=== PATIENT | male | born 1935 | race Caucasian/White ===

== ENCOUNTER 2017-02-26 15:04 | Inpatient (IN) | payer MEDICARE, BC ==
[~2017-02-26] VITALS: Ht 180.3 cm; Wt 83.2 kg
[~2017-02-26 15:04] MED LIST: ACETAMINOPHEN500 MG PO; ASPI325T6 PO; ASPIRIN EXTRA500 M1 PO; CELEBREX 200MG200 MG PO; CENTRUM SILVER1 TA1 PO; CEPHALEXIN500 M1 PO; COUMADIN 1MG1 MG/TAB PO; COUMADIN 5MG5 MG/TAB PO; COUMADIN 6MG6 MG/TAB PO; COUMADIN3 MG PO; FLECAINIDE ACE100 MG PO; FLECAINIDE PO; GLUCOPHAGE500 MG/TAB PO; HCTZ 25MG25 MG PO; HYDROCODONE/APAP PO; LANTUS100 U/ML; LANTUS100 U/ML SQ; LISINOPRIL10 MG PO; LISINOPRIL2.5 MG PO; LISINOPRIL20 MG PO; LOPRESSOR 225 MG/TAB PO; LORTAB 7.5/5001 TAB PO; LOVASTATIN40 MG PO; MELOXICAM PO; METOPROLOL SUCC25 MG PO; METOPROLOL25 MG PO; MOBIC15 MG PO; MULTIPLE VITAMI1 TAB PO; MVI PO; NAPROSYN500 MG PO; NORCO 325 MG-7.1 TAB PO; NORVASC 10MG10 MG PO; NOVOLOG 100U100 U/ML SQ; NOVOLOG FLEX100 U/ML SQ; PACERONE400 MG PO; SENOKOT S 50 MG1 TAB PO; TAMBOCOR 1100 MG/TAB PO; TIKOSYN0.5 MG PO; TOPROL XL 25MG25 MG PO; TRICOR145 MG PO; VITAMIN C BUFF500 MG PO; VITAMIN C500 MG PO; VITAMIN D31000 IU PO; WARFARIN SODIUM1 MG PO; ZESTRIL 10MG10 MG PO; ZOCOR 40MG40 MG PO; ZOCOR40 MG PO
[2017-03-04] VITALS (10 sets, daily range): BP systolic 95–133; BP diastolic 56–70; PULSE 69–80; TEMP 97.8–98.6
[2017-03-04] MEDS ORDERED: PACERONE200 MG PO (09:33)
[2017-03-04] MEDS ORDERED: VITAMIN K0.1 MG PO (09:35)
[2017-03-04] MEDS ORDERED: LOVENOX 3030 MG/0.3 SQ (09:36)
[2017-03-04] MEDS ORDERED: SYNTHROID0.1 MG/TAB PO (09:37)
[2017-03-04] MEDS ORDERED: OSCAL 500 TAB500 MG PO (09:37)
[2017-03-04] MEDS ORDERED: K-DUR 10 MEQ T10 MEQ PO (09:39)
[2017-03-04] MEDS ORDERED: POLYSPORIN OINT30 GM TP (09:40)
[2017-03-04 10:03] LABS: HEMATOCRIT 34.4 % (42.0-52.0); HEMOGLOBIN 11.9 g/dl (13.5-18.0)
[2017-03-04 10:05] LABS: INR 1.2 (0.8-3.0); PROTHROMBIN TIME 13.8 SECONDS (9.7-12.8)
[2017-03-04 21:15] LABS: PH 5 (5-8); SQUAMOUS EPITHELIAL 0-2 /hpf; URINE APPEARANCE Clear; URINE BACTERIA None Seen /hpf; URINE BILIRUBIN Negative (NEGATIVE); URINE BLOOD 1+ (NEGATIVE); URINE COLOR Amber; URINE GLUCOSE Negative (NEGATIVE); URINE KETONE Trace (NEGATIVE); URINE UROBILINOGEN Negative (NEGATIVE); URINE WBC 0-2 /hpf
[2017-03-05 00:09] VITALS: BP 91/48; PULSE 77; TEMP 98.1
[2017-03-05 03:32] VITALS: BP 103/52; PULSE 77; TEMP 98.3
[2017-03-05 05:45] LABS: BASO # 0.1 (0.0-0.2); BASO % 0.4 % (0.0-2.0); EOS # 0.1 (0.0-0.7); EOS % 0.8 % (0-4.0); GRAN % 85.1 % (42.2-75.2); LYMPH # 0.6 (1.2-3.4); LYMPH % 5.2 % (20.0-51.0); MEAN CELL VOLUME 88 fl (80.0-100.0); MEAN CORPUSCULAR HGB CONC 34 g/dl (33.0-37.0); MEAN PLATELET VOLUME 9.4 fl (7.4-10.4); MONO # 0.9 (0.1-0.6); MONO % 7.7 % (1.7-9.3); PLATELET COUNT 449 K/mm3 (130-400); RED BLOOD COUNT 3.62 M/mm3 (4.20-5.60); REDCELL DISTRIBUTION WIDTH-CV 18.2 % (11.5-14.5); WHITE BLOOD COUNT 11.7 K/mm3 (4.8-10.8)
[2017-03-05 05:52] LABS: HEMATOCRIT 31.8 % (42.0-52.0); HEMOGLOBIN 10.9 g/dl (13.5-18.0); MEAN CORPUSCULAR HEMOGLOBIN 30 pg (27.0-31.0)
[2017-03-05 05:55] LABS: INR 1.2 (0.8-3.0); PROTHROMBIN TIME 13.6 SECONDS (9.7-12.8)
[2017-03-05 06:00] LABS: ADJUSTED CALCIUM 9.2 mg/dL (8.4-10.2); ALBUMIN 2.2 gm/dL (3.5-5.0); BILIRUBIN,TOTAL 0.8 mg/dL (0.0-1.0); CALCIUM 7.8 mg/dL (8.4-10.2); CREATININE, serum 1.06 mg/dL (0.66-1.25); MAGNESIUM 1.8 mg/dL (1.6-2.3); POTASSIUM 4.7 mmol/L (3.4-5.0); TOTAL PROTEIN 4.6 gm/dL (6.4-8.2)
[2017-03-05 07:34] VITALS: BP 103/61; PULSE 76; TEMP 97.9
[2017-03-05 11:35] VITALS: BP 117/50; PULSE 75; TEMP 98.4
[2017-03-05 15:58] VITALS: BP 102/53; PULSE 104; TEMP 98.1
[2017-03-05] MEDS ORDERED: LANTUS100 U/ML SQ (18:21)
[2017-03-05 20:01] VITALS: BP 105/52; PULSE 70; TEMP 96.8
[2017-03-06 01:32] VITALS: BP 135/65; PULSE 75; TEMP 96.7
[2017-03-06 04:42] VITALS: BP 121/65; PULSE 79; TEMP 97.2
[2017-03-06 06:27] LABS: MEAN CELL VOLUME 87 fl (80.0-100.0); MEAN CORPUSCULAR HGB CONC 34 g/dl (33.0-37.0); MEAN PLATELET VOLUME 9.7 fl (7.4-10.4); PLATELET COUNT 414 K/mm3 (130-400); RED BLOOD COUNT 3.27 M/mm3 (4.20-5.60); REDCELL DISTRIBUTION WIDTH-CV 18.7 % (11.5-14.5)
[2017-03-06 06:53] LABS: INR 1.5 (0.8-3.0); PROTHROMBIN TIME 16.4 SECONDS (9.7-12.8)
[2017-03-06 07:02] LABS: ADD PATHOLOGY DIFF REVIEW NO; HEMATOCRIT 28.5 % (42.0-52.0); HEMOGLOBIN 9.8 g/dl (13.5-18.0); MEAN CORPUSCULAR HEMOGLOBIN 30 pg (27.0-31.0)
[2017-03-06 07:11] VITALS: BP 108/50; PULSE 70; TEMP 98
[2017-03-06 11:42] VITALS: BP 109/48; PULSE 76; TEMP 98.2
[2017-03-06 14:34] LABS: BAND 5 % (0-10); EOSINOPHIL 1 % (0-4); NEUTROPHILS 86 % (42.0-75.2); PLATELET ESTIMATE INCREASED (NORMAL); TOTAL CELLS COUNTED 100
[2017-03-06 15:47] VITALS: BP 105/88; PULSE 70; TEMP 98
[2017-03-06 19:37] VITALS: BP 110/43; PULSE 70; TEMP 98.8
[2017-03-07 00:37] VITALS: BP 126/55; PULSE 72; TEMP 97.4
[2017-03-07 04:27] VITALS: BP 111/49; PULSE 63; TEMP 96.8
[2017-03-07 07:41] LABS: MEAN CELL VOLUME 87 fl (80.0-100.0); MEAN CORPUSCULAR HGB CONC 35 g/dl (33.0-37.0); MEAN PLATELET VOLUME 10.2 fl (7.4-10.4); PLATELET COUNT 401 K/mm3 (130-400); RED BLOOD COUNT 2.97 M/mm3 (4.20-5.60); REDCELL DISTRIBUTION WIDTH-CV 18.7 % (11.5-14.5); WHITE BLOOD COUNT 8.9 K/mm3 (4.8-10.8)
[2017-03-07 07:47] LABS: ADD PATHOLOGY DIFF REVIEW NO; HEMATOCRIT 25.8 % (42.0-52.0); INR 1.6 (0.8-3.0); MEAN CORPUSCULAR HEMOGLOBIN 30 pg (27.0-31.0); PROTHROMBIN TIME 17.7 SECONDS (9.7-12.8)
[2017-03-07 07:55] VITALS: BP 116/48; PULSE 73; TEMP 97.4
[2017-03-07 09:54] LABS: ANISOCYTOSIS 3+; BAND 2 % (0-10); EOSINOPHIL 5 % (0-4); NEUTROPHILS 78 % (42.0-75.2); TOTAL CELLS COUNTED 100
[2017-03-07 09:56] LABS: HYPOCHROMIA 2+
[2017-03-07 09:57] LABS: PLATELET ESTIMATE INCREASED (NORMAL)
== END 2017-03-07 10:45 | disposition swing bed (61) | DRG 466 ==
LOC: SURG 03-04 07:30 → JCC 03-04 09:07 → SURG 03-04 10:30 → JCC 03-07 10:45
PROVIDERS: Internal Medicine; Nurse Anesthetist, Certified Registered; Orthopaedic Surgery; Physician Assistant
PROC: 0SRS0JA Replacement of Left Hip Joint, Femoral Surface with Synthetic Substitute, Uncemented, Open Approach (ICD-10-PCS; principal; 2017-03-05)
PROC: 0SPS0JZ Removal of Synthetic Substitute from Left Hip Joint, Femoral Surface, Open Approach (ICD-10-PCS; 2017-03-05)
PROC: 0QS704Z Reposition Left Upper Femur with Internal Fixation Device, Open Approach (ICD-10-PCS; 2017-03-05)
DX: S72.112A Displaced fracture of greater trochanter of left femur, initial encounter for closed fracture (principal); E43 Unspecified severe protein-calorie malnutrition; M97.02XA Periprosthetic fracture around internal prosthetic left hip joint, initial encounter; I48.92 Unspecified atrial flutter; W18.30XA Fall on same level, unspecified, initial encounter; E11.9 Type 2 diabetes mellitus without complications; I10 Essential (primary) hypertension; Z79.4 Long term (current) use of insulin; I48.91 Unspecified atrial fibrillation; I25.10 Atherosclerotic heart disease of native coronary artery without angina pectoris; Z95.0 Presence of cardiac pacemaker; E86.1 Hypovolemia; D64.9 Anemia, unspecified
CPT/HCPCS: 99223; 99231-AI; 99232-AI; A4315; A9284; C1776; J0690; J1650; J1815; J2274; J2704; J3010; J7030; J7040